=== PATIENT | male | born 1955 | race Caucasian/White ===

== ENCOUNTER 2018-02-21 09:05 | Emergency (ER) | payer OTHER ==
[2018-02-21 09:19] VITALS: RESP 16; TEMP 97.8
[2018-02-21] MEDS ORDERED: Lidocaine 1% Inj (20ml) INFIL STA (09:19)
[2018-02-21] MEDS ORDERED: Lidocaine Hydrochloride 5 ML INJ ONE (09:23)
--- NOTE | 2018-02-21 09:23 | C.PDOC ---
History Of Present Illness 63 y/o male comes in complaining of an injury to his left 4th digit prior to arrival. States that a cylinder accidentally fell on the finger while he was at work. Patient complains of a contusion and laceration to the finger. Patient has no other associated symptoms or injuries. 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 PS CYLINDER ACCID FELL ONTO FINGER WHILE @ WORK. CO CONTUSION, LACERATION TO FINGER. NO OTHER ASSOC SX OR INJURY EXAM NAD EXT L 4 FINGER +CONTUSION MID/DISTAL PHALANX, NO GROSS DEFORM. AROM LIMITED DUE TO PAIN SKIN +MULT LAC NEURO INTACT Time Seen by Provider: 02/21/18 09:17 Chief Complaint (Nursing): Abnormal Skin Integrity History Per: Patient History/Exam Limitations: no limitations Onset/Duration Of Symptoms: Hrs Current Symptoms Are (Timing): Still Present Past Medical History Reviewed: Historical Data, Nursing Documentation, Vital Signs Vital Signs: Last Vital Signs Temp 97.8 F 02/21/18 09:18 Pulse 84 02/21/18 09:18 Resp 16 02/21/18 09:18 BP 144/90 02/21/18 09:18 Pulse Ox 98 02/21/18 09:18 - Medical History PMH: HTN Denies: Chronic Kidney Disease - [facility] Procedures LAPAROSCOPIC CHOLECYSTECTOMY (01/08/14) Family History: States: No Known Family Hx - Social History Hx Tobacco Use: No Hx Alcohol Use: Yes (socially) Hx Substance Use: No - Immunization History Hx Tetanus Toxoid Vaccination: Yes Hx Influenza Vaccination: No Hx Pneumococcal Vaccination: No Review Of Systems Except As Marked, All Systems Reviewed And Found Negative. Constitutional: Negative for: Fever Cardiovascular: Negative for: Chest Pain Respiratory: Negative for: Shortness of Breath Gastrointestinal: Negative for: Nausea Musculoskeletal: Positive for: Other (Laceration to L 4th digit). Negative for: Arm Pain Physical Exam - Physical Exam Appears: Non-toxic, No Acute Distress Skin: Other (Multiple lacerations) Head: Atraumatic, Normacephalic Eye(s): bilateral: Normal Inspection Oral Mucosa: Moist Neck: Supple Chest: Symmetrical Cardiovascular: Rhythm Regular, No Murmur Respiratory: Normal Breath Sounds, No Rales, No Rhonchi, No Wheezing Extremity: No Deformity, Other (Contusion on L 4th digit, mid/distal phalanx; AROM limited due to pain) Pulses: Left Radial: Normal Neurological/Psych: Oriented x3, Normal Speech, Normal Motor, Normal Sensation ED Course And Treatment O2 Sat by Pulse Oximetry: 98 (RA) Pulse Ox Interpretation: Normal - Other Rad L FINGER 4 X-Ray: Interpreted by Me (NEG) Left hand XR X-Ray: Read By Radiologist Interpretation: FINDINGS: LEFT RING FINGER: Left 4th digit appears unremarka ble without acute displaced fracture. Remainder of the left hand (as seen on the AP view) is grossly unremarkable. JOINTS: No dislocation. SOFT TISSUES: Soft tissue swelling and laceration at the distal 4th phalanx. No evidence of radiopaque. OTHER FINDINGS: None. IMPRESSION: Soft tissue swelling and laceration at the distal 4th phalanx. No acute displaced fracture or dislocation identified. Progress Note: Left hand XR ordered. Patient was given ibuprofen PO. Laceration - Laceration Repair No standard instances Wound Length (In cm): 3 Description Of Wound: Irregular, Contused Tissue Wound Cleansed With: Betadine, Sterile Saline Anesthesia: Lidocaine 1% Wound Examination: Irrigated With Saline, No FB With Wound Exploration, No Tendon Injury With Wound Exploration Wound Debridement/Revision: Wound Debrided Wound Closure: Suture Suture Technique And Material Used: Prolene (5.0) Wound Complexity: Simple (X 6) Disposition Counseled Patient/Family Regarding: Studies Performed, Diagnosis, Need For Followup - Disposition Referrals: [facility] [Provider Group] Disposition: HOME/ ROUTINE Disposition Time: 10:13 Condition: IMPROVED Additional Instructions: RETURN 7-10 DAYS FOR SUTURE REMOVAL. RETURN SOONER IF CONCERN FOR INFECTION. WEAR SPLINT CONTINUOUSLY. WOUND CARE ADVISED Prescriptions: Ibuprofen [Motrin] 600 mg PO Q6 #30 tab Instructions: Laceration Repair With Stitches (DC) Forms: [employer] ([place]an), Work Excuse Print Language: PERSIAN - Clinical Impression Clinical Impression: Finger laceration - Scribe Statement The provider has reviewed the documentation as recorded by the Felice Tabor Provider Attestation: All medical record entries made by the Aguilaribemmanuel were at my direction and personally dictated by me. I have reviewed the chart and agree that the record accurately reflects my personal performance of the history, physical exam, medical decision making, and the department course for this patient. I have also personally directed, reviewed, and agree with the discharge instructions and disposition.
[2018-02-21] MEDS ORDERED: Bacitracin 500 Units/gm Oint Foilpak UD ONE ×2 (10:06→10:21)
--- NOTE | 2018-02-21 10:15 | RAD ---
Date of service: 02/21/2018 PROCEDURE: Left ring finger radiographs. HISTORY: TRAUMA COMPARISON: None available. TECHNIQUE: AP radiograph of the left hand, as well as spot oblique and lateral images of left ring finger were obtained. FINDINGS: LEFT RING FINGER: Left 4th digit appears unremarkable without acute displaced fracture. Remainder of the left hand (as seen on the AP view) is grossly unremarkable. JOINTS: No dislocation SOFT TISSUES: Soft tissue swelling and laceration at the distal 4th phalanx. No evidence of radiopaque. OTHER FINDINGS: None. IMPRESSION: Soft tissue swelling and laceration at the distal 4th phalanx. No acute displaced fracture or dislocation identified.
[2018-02-21 10:43] VITALS: BP 135/86; PULSE 85
[2018-02-22 16:36] VITALS: O2SAT 98
== END 2018-02-21 10:43 | disposition home or self-care (01) ==
LOC: C.ER 09:05
DX: S61.215A Laceration without foreign body of left ring finger without damage to nail, initial encounter (principal); W22.8XXA Striking against or struck by other objects, initial encounter; Y92.89 Other specified places as the place of occurrence of the external cause; Y99.0 Civilian activity done for income or pay

== ENCOUNTER 2018-02-21 22:48 | Emergency (ER) | payer OTHER ==
[2018-02-21 23:26] VITALS: BP 135/80; PULSE 69; RESP 20; TEMP 98.2; O2SAT 97
[2018-02-22] MEDS ORDERED: Bacitracin 500 Units/gm Oint Foilpak UD ONE (00:11)
--- NOTE | 2018-02-22 00:20 | C.PDOC ---
History Of Present Illness 63 year old male presents to the ED for evaluation of a laceration. Patient was seen in the ED earlier today after sustaining a laceration. Patient had sutures placed and given information for proper wound care. Patient reports that after getting home her noticed some blood in the area, went to see his PMD who advised him to come to the ED to be rechecked. Patient denies fever, chills, rash, weakness, numbness, new injury, fall, trauma. Time Seen by Provider: 02/21/18 23:37 Chief Complaint (Nursing): Upper Extremity Problem/Injury History Per: Patient History/Exam Limitations: no limitations Onset/Duration Of Symptoms: Hrs Current Symptoms Are (Timing): Still Present Quality: "Pain" Exacerbating Factor(s): Movement Recent travel outside of the [place]: No Additional History Per: Patient Past Medical History Reviewed: Historical Data, Nursing Documentation, Vital Signs Vital Signs: Last Vital Signs Temp 98.2 F 02/21/18 23:18 Pulse 69 02/21/18 23:18 Resp 20 02/21/18 23:18 BP 135/80 02/21/18 23:18 Pulse Ox 97 02/21/18 23:18 - Medical History PMH: HTN Denies: Chronic Kidney Disease Surgical History: No Surg Hx - [facility] Procedures LAPAROSCOPIC CHOLECYSTECTOMY (01/08/14) Family History: States: Unknown Family Hx - Social History Hx Tobacco Use: No Hx Alcohol Use: Yes (socially) Hx Substance Use: No - Immunization History Hx Tetanus Toxoid Vaccination: No Hx Influenza Vaccination: No Hx Pneumococcal Vaccination: No Review Of Systems Constitutional: Negative for: Fever, Chills Cardiovascular: Negative for: Chest Pain Musculoskeletal: Positive for: Hand Pain Skin: Positive for: Other (laceration) Neurological: Negative for: Weakness, Numbness Physical Exam - Physical Exam Appears: Non-toxic, No Acute Distress Skin: Normal Color, Warm, Dry Head: Atraumatic, Normacephalic Eye(s): bilateral: Normal Inspection Extremity: No Normal ROM (limited left 4th finger), Tenderness (left finger), Capillary Refill (< 2 seconds), No Swelling, Other (distal aspect left 4th finger sutures in place, no active bleeding, clots, abrasion, large contusion) Pulses: Left Radial: Normal, Right Radial: Normal Neurological/Psych: Oriented x3, Normal Speech, Normal Cognition, Normal Motor, Normal Sensation Gait: Steady ED Course And Treatment O2 Sat by Pulse Oximetry: 97 (ON RA) Pulse Ox Interpretation: Normal Progress Note: Cleaned the area with saline, bacitracin was applied and non adherent dressing. Patient was advised to follow previous instructions about proper wound care and to make appt with hand surgeon Reevaluation Time: 06:02 Reassessment Condition: Improved Disposition Counseled Patient/Family Regarding: Diagnosis, Need For Followup - Disposition Referrals: Brett Hoffmann MD [Staff Provider] - Disposition: HOME/ ROUTINE Disposition Time: 00:18 Condition: GOOD Additional Instructions: Please follow up with PMD in 2 days for wound check follow previous instructions for suture removal Follwo up with [facility] specialist Instructions: Wound Care (DC) Forms: [email or web address] ([employer]) ([place]i) Print Language: KYRGYZ - Clinical Impression Clinical Impression: Laceration of finger of left hand - PA / [employer] / Resident Statement MD/DO has reviewed & agrees with the documentation as recorded. - Scribe Statement The provider has reviewed the documentation as recorded by the Scribe Kyle Escobedo All medical record entries made by the Scribe were at my direction and personally dictated by me. I have reviewed the chart and agree that the record accurately reflects my personal performance of the history, physical exam, medical decision making, and the department course for this patient. I have also personally directed, reviewed, and agree with the discharge instructions and disposition.
== END 2018-02-22 00:24 | disposition home or self-care (01) ==
LOC: C.ER 22:48
DX: S61.215D Laceration without foreign body of left ring finger without damage to nail, subsequent encounter (principal); X58.XXXD Exposure to other specified factors, subsequent encounter